=== PATIENT | female | born 1970 | race Caucasian/White ===

== ENCOUNTER 2022-08-17 13:53 | Outpatient (OUT) | payer BC, SELFPAY ==
--- NOTE | 2022-08-17 13:58 | XR_ITS ---
[place] [id number] Patient Name: AUGUSTO ENRIQUEZ MRN: [id number] date: 1970 Sex: F Assigned Patient Location: [facility] Current Patient Location: [facility] Accession/Order Number: [id number] Exam Date: 08/17/2022 14:15 Report Date: 08/17/2022 17:04 At the request of: TY DOOLEY Procedure: XR DEXA axial skeleton EXAMINATION: XR DEXA axial skeleton HISTORY: Screening For Osteoporosis Z13.820 COMPARISON: No relevant comparison available. TECHNIQUE: Dual-energy X-ray absorptiometry (DXA) was performed. FINDINGS: SPINE ANALYSIS: Average bone mineral density is 1.235 g/cm2. T-score (standard deviation relative to young adult mean): 0.5 . HIP ANALYSIS: Lowest bone mineral density is within the right femoral trochanter, 0.812 g/cm2. T-score (standard deviation relative to young adult mean): -0.3 . XR/XR DEXA axial skeleton IMPRESSION: World Alex Organization Classification: Normal - Low Fracture Risk Electronically authenticated by: CONSUELO KRUEGER Date: 08/17/2022 17:04
--- NOTE | 2022-08-17 13:58 | MM_ITS ---
Patient: AUGUSTO ENRIQUEZ Exam Date: 08/17/2022 : 1970 Gender:F Ordering : TY DOOLEY Admission #: [id number] Family : DR KANWAL LONGORIA M.D. Order #: [id number] CLICK HERE TO VIEW EXAM RADIOLOGY REPORT PROCEDURE: MM TOMOSYNTHESIS SCREENING BI COMPARISON: MAMMO EULA SCREEN, 06/18/2014. INDICATIONS: Screening Calculator Name NCI Breast Cancer Risk Assessment Tool 5 Year Breast Cancer Risk 1.20% Lifetime Breast Cancer Risk 9.60% Personal Breast Cancer No Personal Ovarian Cancer No Treatments None Family Cancers Grandmother-maternal with colon cancer at age 73; Grandfather-paternal with throat cancer at age 67. LOCATION: [facility] BREAST COMPOSITION: Almost entirely fatty. FINDINGS: DIAGNOSTIC CATEGORY 1--NEGATIVE. RIGHT BREAST: No significant suspicious finding. No significant change has occurred. LEFT BREAST: No significant suspicious finding. No significant change has occurred. RECOMMENDATIONS: ROUTINE MAMMOGRAM AND CLINICAL EVALUATION IN 12 MONTHS. PLEASE NOTE: A NORMAL MAMMOGRAM DOES NOT EXCLUDE THE POSSIBILITY OF BREAST CANCER. A CLINICALLY SUSPICIOUS PALPABLE LUMP SHOULD BE BIOPSIED. Dictated by: Mk Paez M.D. on 08/19/2022 at 12:55 Approved by: Mk Paez M.D. on 08/19/2022 at 12:56
== END 2022-08-17 13:54 | disposition home or self-care (01) ==
LOC: RAD 13:53
PROVIDERS: PCP Family Medicine; Visit Provider Nurse Practitioner
DX: Z13.820 Encounter for screening for osteoporosis (principal); Z78.0 Asymptomatic menopausal state; Z12.31 Encounter for screening mammogram for malignant neoplasm of breast; Z80.0 Family history of malignant neoplasm of digestive organs; Z80.2 Family history of malignant neoplasm of other respiratory and intrathoracic organs
CPT/HCPCS: 77063; 77067; 77080

== ENCOUNTER 2022-08-27 09:08 | Outpatient (OUT) | payer BC, SELFPAY ==
--- NOTE | 2022-08-27 09:00 | US_ITS ---
The [address] [address] Patient Name: AUGUSTO ENRIQUEZ MRN: [id number] date: 1970 Sex: F Assigned Patient Location: Current Patient Location: Accession/Order Number: [id number] Exam Date: 08/27/2022 09:25 Report Date: 08/29/2022 06:32 At the request of: NON-STAFF PHYSICIAN Procedure: US renal BI EXAMINATION: US renal BI HISTORY: NEPHROLITHIASIS COMPARISON: No relevant comparison available. TECHNIQUE: Ultrasound examination was performed of the kidneys and urinary bladder. FINDINGS: RIGHT KIDNEY: 6 mm nonobstructing stone within the kidney. Dilated renal pelvis versus extrarenal pelvis (developmental variant). Color Doppler demonstrates blood flow within the kidney. Kidney: 11.7 x 4.3 x 4.8 cm LEFT KIDNEY: No evidence of pelvocaliectasis, mass, or calculi. Normal renal cortical parenchymal echogenicity. Color Doppler demonstrates blood flow within the kidney. Kidney: 11.2 x 4.4 x 4.2 cm BLADDER: No visible wall thickening, mass, or calculi. US/US renal BI IMPRESSION: 1. Nonobstructing right nephrolithiasis. 2. Dilated right renal pelvis; this could be normal for a patient or represent distal ureteral obstruction/stone. Electronically authenticated by: CONSUELO KRUEGER Date: 08/29/2022 06:32
== END 2022-08-27 09:09 | disposition home or self-care (01) ==
LOC: US 09:09
PROVIDERS: PCP Family Medicine
DX: N20.0 Calculus of kidney (principal)
CPT/HCPCS: 76775

== ENCOUNTER 2022-11-12 07:52 | Outpatient (OUT) | payer BC, SELFPAY ==
--- NOTE | 2022-11-12 | CT_ITS ---
The [address] [address] Patient Name: AUGUSTO ENRIQUEZ MRN: [id number] date: 1970 Sex: F Assigned Patient Location: CT Current Patient Location: CT Accession/Order Number: [id number] Exam Date: 11/12/2022 08:02 Report Date: 11/13/2022 12:44 At the request of: NON-STAFF PHYSICIAN Procedure: CT abdomen pelvis wo con CLINICAL HISTORY: Kidney Stones N20.0. EXAMINATION: Unenhanced CT scan of the abdomen and pelvis: 11/12/2022. COMPARISON: Renal, bladder ultrasound 08/27/2022. Unenhanced CT scan of the abdomen and pelvis: 02/24/2022. TECHNIQUE: 3 mm axial images from lung bases through ischial tuberosities without intravenous or oral contrast were obtained. Sagittal, coronal reconstructions were performed. FINDINGS: Lung bases demonstrate no focal abnormalities. The heart size seems normal. CT ABDOMEN: The liver, spleen, pancreas, adrenal glands appear normal. The patient status post cholecystectomy. There is no hydronephrosis of the right or the left kidney. There is no perinephric fat stranding. However, there is a faint 2 to 3 mm calculus in the upper pole of the left kidney. This seems nonobstructing. Similarly there is questionable small hypodense nodule in the upper pole of the right kidney posterior laterally, measuring 4 mm in size. There is a nonobstructing calculus measuring 2 to 3 mm in size in the midpole of the right kidney. There is no hydronephrosis. There is no perinephric fat stranding. There is no ureterolithiasis either on the right or the left side. The abdominal aorta has normal caliber. There is no retroperitoneal or mesenteric adenopathy. The bowel loops are of normal caliber with few scattered diverticula in the colon. The appendix seems normal. CT PELVIS: There are beam hardening artifacts from patient's left hip prostheses in place. The bladder seems normal. The uterus, ovaries are not seen. There is no pelvic adenopathy. There are no focal fluid collections. The visualized soft tissues demonstrate degenerative disc disease at L5-S1 with vacuum disc phenomena. CT/CT abdomen pelvis wo con IMPRESSION: 1. There are bilateral nonobstructing renal calculi without obstructive uropathy. 2. Prior cholecystectomy. 3. Normal appendix. 4. Mild diverticulosis without diverticulitis. 5. Previous hysterectomy. Electronically authenticated by: BRITANY MCCORMACK Date: 11/13/2022 12:44
== END 2022-11-12 07:53 | disposition home or self-care (01) ==
LOC: CT 07:53
PROVIDERS: PCP Nurse Practitioner
DX: N20.0 Calculus of kidney (principal); Z90.49 Acquired absence of other specified parts of digestive tract; K57.90 Diverticulosis of intestine, part unspecified, without perforation or abscess without bleeding; Z90.710 Acquired absence of both cervix and uterus
CPT/HCPCS: 74176

== ENCOUNTER 2024-07-19 11:26 | Emergency (ER) | payer OTHER, SELFPAY ==
--- OUTSIDE RECORDS SUMMARY | 2018-05-14 09:15 | XMS_ITS | Continuity of Care Document ---
Author Organization [facility] Address [address] [place] [address] Phone Care Team Providers Care Chief Librarian Circulation Department Name Role Phone Mk Parker Unavailable Unavailable Procedures Procedure Date CHIROPRACTIC MANIPULATION Advance Directives Directive Yes / No Effective Date File Name No Information Encounters Encounter Description Practice Location Reason(s) For Visit Diagnoses Date Provider Providers Copied on Encounter [facility], [address] [place] [address], [id number], tel:[phone] [facility] lumbar spine (chief complaint) lumbar spine (chief complaint) Segmental and somatic dysfunction of lumbar regionLow back painSegmental and somatic dysfunction of cervical region Apr-0 8-201 9 Keith Terrazas. [address] [place] [address], [id number] , [place]. tel: [phone] [facility], [address] [place] [address], [id number], [place] tel:[phone] [facility] lumbar spine (chief complaint) lumbar spine (chief complaint) Segmental and somatic dysfunction of lumbar regionLow back painSegmental and somatic dysfunction of cervical regionCervicalgia Apr-0 5-201 9 Keith Terrazas. [address] [place] [address], [id number] , [place]. tel:[phone] [facility], [address] [place] [address], [id number], [place] tel:[phone] [facility] lumbar spine (chief complaint) lumbar spine (chief complaint) Segmental and somatic dysfunction of lumbar regionLow back painSegmental and somatic dysfunction of cervical regionCervicalgia 9 Keith Terrazas. [address] [place] [address], [place], [place], [id number] , [place]. tel:[phone] Family History Family Member Type Diagnosis Age At Onset No Information Payers Payer name Insurance type Covered constitution party ID Bri montalvo(carrie MOTT [id number] Social History Type Description Quantity Date Captured Comments Sex Female Smoking Status No Information Sexual Orientation Straight or heterosexual Apr Gender Identity Female Chief Complaint And Reason For Visit From encounter dated '05/14/2018 13:15'. lumbar spine (chief complaint) lumbar spine (chief complaint). Description: Pt reports improvement in low back. Now rates pain at a 4. Reason For Referral Reason For Referral No Information History Of Present Illness Encounter Date Complaint History Of Prese nt Illness lumbar spine lumbar spine Pt reports impro vement in low back. Now rates pain at a 4. lumbar spine Pt reports sligh t improvement from last visit. lumbar spine lumbar spine lumbar spine C/O flare up of chronic low back pain with onset 4 weeks ago.Sx are the result of regular ADL'S. Pain is primarily at L3-L5 PVM on the Rt. & Lt. and extends to the SI joint, Rt. & Lt. Pain is local, dull, and without radiation to the lower extremities. No sensory or motor changes noted. Symptoms present with a pain scale of 8 (VAS = 1-10). Pain interferes with regular ADL's. Increase in pain with movement/ROM and ADL'S. Some decrease in symptoms with rest. No change in the pain pattern from the onset of symptoms. Pain pattern is as prior times. Functional Status Date Functional Assessmen t No Information Instructions Date Instruction Additional Infor mation No Information Assessments Type Assessment Date assessment Segmental and somatic dysfunctio n of lumbar region assessment Low back pain assessment Segmental and somatic dysfunctio n of cervical region impression Patient Care Teams Name Effective Dates (start - stop) Status Members No Information
--- OUTSIDE RECORDS SUMMARY | 2024-06-21 05:30 | XMS_ITS ---
Author Organization [facility] vices Address [address] [place] [id number] Care Team Providers Care Chief Lock Tender Operator Name Role Phone Piotrdemetrius Jazmyne Unavailable [phone] REASON FOR VISIT COILED TUBING SUPERVISOR Comp Exam Encounters Encounter Location Date Provider Diagnosis [facility] Main [address] [place] [id number] 06/21/2024 Jazmyne Carrizales Plan Of Treatment Next Appt Details Provider Name:Jazmyne Carrizales , 09/18/2024 03:00:00 PM, [address] [place] [address], [id number], Progress Notes * Elijah ENRIQUEZB:1970 (54 yo F)Acc No.[id number]:06/21/2024 Patient: Jacinda GONZALEZ Provider: Alberto Carrizales DMD :1970 A ge:54 Y S ex:Female Date:06/21/2024 Address:[facility] [facility], [address], [place], [id number] Subjective: * Chief Complaints: * 1 . COILED TUBING SUPERVISOR Comp Exam. * Medical History: Objective: * Vitals: Assessment: Plan: * Treatment: * Billing Information: * Visit Code: * Procedure Codes: * Electronic signature of Eileen Carrizales DMD on 07/19/2024 at 11:41 AM EDT Sign off status: Pending * Provider: Alberto Carrizales DMD Date: 0 06/21/2024 Generated for Suresh hidalgo/Klarissa/eTransmitting on: 0 07/19/2024 11:41 AM EDT
--- OUTSIDE RECORDS SUMMARY | 2024-07-19 11:41 | XMS_ITS | Encounter Summary ---
Author Organization [facility] Address [address] [place] [address] Care Team Providers Care Bed Maker Name Role Phone Sarai Quinn MD Primary Care Provider [phone] Rochelle Maravilla Unavailable [phone] Bela Panda Unavailable Reason for Visit * Reason Onset Date Comments Med Refill 04/08/2024 Encounter Details Date Type Department Care Team (Late st Contact Info) Description 04/08/2024 Refill [facility] [address] [place] [address] Sarai Quinn MD [address] [place] [address] Social History Tobacco Use Types Packs/Day Years Used Date Smoking Tobacco: Never Smokeless Tobacco: Never Alcohol Use Standard Drinks/Week Comments Yes 0 (1 standard drink = 0.6 oz pur e alcohol) caffeine: i can pop a day AUDIT-C Answer Date Recorded Q1: How often do you have a drink containing alc ohol? Monthly or less 11/02/2023 Q2: How many drinks containi ng alcohol do you have on a typical day when you are drinking? 1 or 2 11/02/2023 Q3: How often do you have si x or more drinks on one occasion? Never 11/02/2023 Comments Unknown Sex and Gender Information Value Date Recorded Sex Assigned at Not on file Legal Sex Female 6:52 PM EDT Gender Identity Not on file Sexual Orientation Not on file documented as of this encounter Plan of Treatment Not on file documented as of this encounter Visit Diagnoses Not on filedocumented in this encounter Care Teams Bed Maker Relationship Specialty Start Date End Date Sarai Quinn MD [address] [place] [address] PCP - General Family Medicine 06/14/22 04/08/24 Rochelle Maravilla CRNP [address] [facility] [place] [id number] Referring Physician Nurse Practitioner 05/21/24 Bela Panda PA [address] [place] [address] Physician Sports Marketer Neurology 05/21/24 documented as of this encounter
--- OUTSIDE RECORDS SUMMARY | 2024-07-19 11:41 | XMS_ITS | Referral Summary ---
Author Organization [facility] Address [address] [place] [address] Care Team Providers Care Director Of Student Financial Aid Name Role Phone Capo Blankenship MD Unavailable Rochelle Maravilla MD Primary Care Provider [phone] Allergies Active Allergy Reactions Criticality Noted Date Comments Lisinopril Other High 12/30/2019 Other reaction(s): muscle aches, muscle cramps Medications aspirin 81 mg EC tablet Take 81 mg by mouth in the morning. Active oxybutynin (Ditropan) 5 mg tablet Take 5 mg by mouth in the morning and at bedtime. 3 Active tamsulosin (Flomax) 0.4 mg 24 hr capsule Take 0.4 mg by mouth in the morning. 3 Active tiZANidine (Zanaflex) 4 mg tablet Take 2-4 mg by mouth at bedtime. 3 Active hyoscyamine 0.125 mg SL tablet dissolve 1 tablet under the tongue four times a day if needed for CRAMPS 3 Active fremanezumab (Ajovy Syringe) 225 mg/1.5 mL prefilled syringe inject 1 AND 1/2 milliliters ( 225 milligrams ) subcutaneously Ev... (REFER TO PRESCRIPTION NOTES). 1 Active ergocalciferol (Vitamin D-2) 1.25 MG (32608 Units) capsule Take 50,000 Units by mouth 2 (two) times a week. 0 Active eletriptan (Relpax) 40 mg tablet take 1 tablet by mouth if needed AT ONSET OF HEADACHE may repeat ... (REFER TO PRESCRIPTION NOTES). 0 Active cycloSPORINE (Restasis) 0.05 % ophthalmic emulsion 1 drop twice a day. Active cetirizine (ZyrTEC) 10 mg tablet Take 10 mg by mouth in the morning. Active buPROPion XL (Wellbutrin XL) 300 mg 24 hr tablet Take 300 mg by mouth in the morning. 1 Active OXcarbazepine (Trileptal) 300 mg tablet Take 300 mg by mouth in the morning and at bedtime. Active rosuvastatin (Crestor) 10 mg tablet Take 10 mg by mouth at bedtime. Active hydroCHLOROthi azide (Microzide) 12.5 mg capsuleIndicat ions:Kidney stone Take 1 capsule (12.5 mg) by mouth in the morning. 90 capsule 3 3 Active FLUoxetine (PROzac) 10 mg capsule Take 10 mg by mouth in the morning. 3 Active Active Problems Problem Noted Date Diagnosed Date Kidney stone 03/09/2022 Overview (03/09/2022): Added automatically from request for surgery [id number] Factor V Leiden mutation Social History Tobacco Use Types Packs/Day Years Used Date Smoking Tobacco: Never Smokeless Tobacco: Never Tobacco Cessation:Counseling Given: Not Answered Alcohol Use Standard Drinks/Week Comments Not Currently 0 (1 standard drink = 0.6 oz pur e alcohol) PHQ-2 Answer Date Recorded Patient Health Questionnaire-2 Score 0 11/30/2022 [place] Safety & Environment Answer Date Rec orded Fear of Current or Ex-Partner Not on file Emotionally Abused Not on file 03/30/2023 Physically Abused Not on file 03/30/2023 Sexually Abused Not on file 03/30/2023 Physically or Sexually Abused Not on file Comments Unknown Sex and Gender Information Value Date Recorded Sex Assigned at Female 04/15/2022 9:45 AM EST Legal Sex Female 8:58 AM EST Gender Identity Female 04/15/2022 9:45 AM EST Sexual Orientation Not on file Last Filed Vital Signs Vital Sign Reading Time Taken Comments Blood Pressure 115/66 11/30/2022 2:26 PM EDT Pulse 83 11/30/2022 2:26 PM EDT Temperature 36.3 C (97.3 F) 03/17/2022 3:15 PM EST Respiratory Rate 18 03/17/2022 3:15 PM EST Oxygen Saturation 100% 03/17/2022 3:15 PM EST Inhaled Oxygen Concentration - - Weight 94.3 kg (208 lb) 09/21/2022 2:32 PM EDT Height 152.4 cm (5') 09/21/2022 2:32 PM EDT Body Mass Index 40.62 09/21/2022 2:32 PM EDT Plan of Treatment Not on file Medical Devices Implanted Type Area Cost And Sales Record Supervisor Device Identifier Shelf Expiration Date Model / Serial / Lot Stent,Ureteral ,Soft,Tria,6x2 6 - [id number] Implanted:Qty: 1 on 03/17/2022 by Capo Blankenship MD at [facility] Stent Right: Ureter [facility] [id number] 12/14/2024 [id number] Insurance [facility] Care Teams Director Of Student Financial Aid Relationship Specialty Start Date End Date Rochelle Maravilla MD [address] [place] [phone] PCP - General 09/14/22 Capo Blankenship MD [address] [facility] [place] [address] Consulting Physician Urology 03/07/22
--- OUTSIDE RECORDS SUMMARY | 2024-07-19 11:41 | XMS_ITS | Encounter Summary ---
Author Organization [facility] Address [address] [place] [address] Care Team Providers Care Monogram Operator Name Role Phone Viktoriya Mendoza NP Unavailable [phone] Sarai Quinn MD Primary Care Provider Rochelle Maravilla Unavailable [phone] Bela Panda Unavailable Encounter Details Date Type Department Care Team (Late st Contact Info) Description 08/19/2022 Abstract [facility] [address] [place] [phone] Sarai Quinn MD [address] [place], [place] [id number] Social History Tobacco Use Types Packs/Day Years Used Date Smoking Tobacco: Never Assessed Comments Unknown Sex and Gender Information Value Date Recorded Sex Assigned at Not on file Legal Sex Female 6:52 PM EDT Gender Identity Not on file Sexual Orientation Not on file documented as of this encounter Plan of Treatment Not on file documented as of this encounter Visit Diagnoses Not on filedocumented in this encounter Care Teams Monogram Operator Relationship Specialty Start Date End Date Viktoriya Mendoza NP [address] [facility] [place], [place] [id number] PCP - [place] [employer] 05/07/20 Sarai Quinn MD [address] [place] [address] PCP - General Family Medicine 06/14/22 04/08/24 Rochelle Maravilla CRNP [address] [facility] [place] [address] Referring Physician Nurse Practitioner 05/21/24 Bela Panda PA [address] [place] [address] Physician Real Estate Legal Assistant Neurology 05/21/24 documented as of this encounter
--- OUTSIDE RECORDS SUMMARY | 2024-07-19 11:41 | XMS_ITS | Encounter Summary ---
Author Organization [facility] Address [address] [place] [address] Care Team Providers Care Acetylene Torch Burner Name Role Phone Sarai Quinn MD Primary Care Provider [phone] Rochelle Maravilla Unavailable [phone] Bela Panda Unavailable Reason for Visit * Reason Onset Date Comments Med Refill 03/19/2024 Encounter Details Date Type Department Care Team (Late st Contact Info) Description 03/19/2024 Refill [facility] [address] [place] [address] Sarai Quinn MD [address] [place] [address] Social History Tobacco Use Types [...] on filedocumented in this encounter Care Teams Acetylene Torch Burner Relationship Specialty Start Date End Date Sarai Quinn MD [address] [place] [address] PCP - General Family Medicine 06/14/22 04/08/24 Rochelle Maravilla CRNP [address] [facility] [place] [address] Referring Physician Nurse Practitioner 05/21/24 Bela Panda PA [address] [place] [address] Physician Oil Exploration Engineer Neurology 05/21/24 documented as of this encounter
--- OUTSIDE RECORDS SUMMARY | 2024-07-19 11:41 | XMS_ITS | Patient Health Record ---
Author Organization [facility] vices Address [address] [place], [place] [id number] Care Team Providers Care Med Care Manager Name Role Phone Jazmyne Carrizales Unavailable [phone] Allergies Allergen (clinical drug ingredient) Drug/Non Drug Allergy documented on EMR Reaction Allergy Type Onset Date Status phenazopyridine Pyridium Unknown Drug Allergy A ctive Reason For Referral No Information Medications Medication SIG (Take, Route, Frequency, Duration) Notes Start Date End Date Status Ozempic 0.5 mg Active PROzac 20 MG 1 capsule Orally Onc e a day Active Wellbutrin 300 mg Active tiZANidine HCl 4 MG 1 tablet at bedtime as needed Orally Once a day Active ZyrTEC 10 MG 1 tablet Orally Once a day Active hydroCHLOROthiazide 12.5 MG 1 capsule in the morning Orally Once a day Active Ajovy 225 MG/1.5ML 1.5 mL Subcutaneous Active Relpax 40 MG 1 tablet Orally Once a day Active Denta 5000 Plus 1.1 % Brashear with toothpa macarena morning and night. Do not rinse after use. Dental Two times a day for 30 days 03/14/2024 Active Baby Aspirin Active Problems Problem Type SNOMED Code ICD Code Onset Dates Problem Status W/U Status Risk Notes Problem Obese class II (314761904643 105) BMI 39.0-39.9,a dult (Z68.39) Active confirmed Vital Signs Heart Rate 80 /min 03/14/2024 Blood pressure diastolic 83 mm Hg 03/14/2024 Height-cm 152.4 cm 03/14/2024 Weight-kg 90.72 kg 03/14/2024 Height 5'0 in 03/14/2024 Blood pressure systolic 137 mm Hg 03/14/2024 Weight 200 lbs 03/14/2024 BMI 39.06 kg/m2 03/14/2024 Encounters Encounter Location Date Provider Diagnosis Dental Main [address] [place], [place] [id number] 03/14/2024 Jazmyne Carrizales BMI 39.0-39.9,adul t Z68.39 ; Dietary counseling Z71.3 ; Exercise counseling Z71.82 ; Encounter for screening for dental disorders Z13.84 ; Dental caries into dentine K02.62 ; Dental confucianism status Z98.811 and Encounter for dental examination and cleaning without abnormal findings Z01.20 Assessments Encounter Date Diagnosis (ICD Code) Assessment Notes Treatment Notes Treatment Clinical Notes Section Notes 03/14/2024 BMI 39.0-39.9,adult (ICD-10 - Z68.39) 03/14/2024 Dietary counseling (ICD-10 - Z71.3) 03/14/2024 Exercise counseling (ICD-10 - Z71.82) 03/14/2024 Encounter for screening for dental disorders (ICD-10 - Z13.84) 03/14/2024 Dental caries into dentine (ICD-10 - K02.62) 03/14/2024 Dental confucianism status (ICD-10 - Z98.811) 03/14/2024 Encounter for dental examination and cleaning without abnormal findings (ICD-10 - Z01.20) Plan Of Treatment Next Appt Details Provider Name:Jazmyne Carrizales , 09/18/2024 03:00:00 PM, [address] [place], [place], [id number], Insurance Providers Payer Name Payer Address Payer Phone Subscriber Number Group Number Insured Name Patient Relationship to Insured Coverage Start Date Coverage End Date [facility] [address] [place] [address] [id number] Spouse - patient is the spouse of the insured 9
--- OUTSIDE RECORDS SUMMARY | 2024-07-19 11:41 | XMS_ITS | Encounter Summary ---
Author Organization [facility] Address [address] [place] [address] Care Team Providers Care Automatic Profile Shaper Operator Name Role Phone Viktoriya Mendoza NP Unavailable [phone] Sarai Quinn MD Primary Care Provider Rochelle Maravilla Unavailable Bela Panda Unavailable Encounter Details Date Type Department Care Team (Late st Contact Info) Description 08/29/2022 Abstract [facility] [address] [place] [id number] Sarai Quinn MD [address] [place], [place] [id number] Social History Tobacco Use Types Packs/Day Years [...] on filedocumented in this encounter Care Teams Automatic Profile Shaper Operator Relationship Specialty Start Date End Date Viktoriya Mendoza NP [address] [facility] [address] [place], [place] [id number] PCP - [place] Commercial 05/07/20 Sarai Quinn MD [address] [place] [address] PCP - General Family Medicine 06/14/22 04/08/24 Rochelle Maravilla CRNP [address] [facility] [place] [address] Referring Physician Nurse Practitioner 05/21/24 Bela Panda PA [address] [place] [address] Physician Marine Propulsion Technician Neurology 05/21/24 documented as of this encounter
--- OUTSIDE RECORDS SUMMARY | 2024-07-19 11:41 | XMS_ITS | Encounter Summary ---
Author Organization [facility] Address [address] [place] [address] Care Team Providers Care Foam Rubber Curer Name Role Phone Sarai Quinn Primary Care Provider [phone] Source Comments In the event this information is protected by the Federal Confidentiality of Alcohol and Drug AbusePatient Records regulations: The Federal rules restrict any use of the information to criminally investigate or prosecute any alcohol or drug abuse patient.[facility] Encounter Details Date Type Department Care Team (Late st Contact Info) Description 01/16/2020 Patient [facility] [address] [place] [address] Massimo Calvin RPh RE: COPD: Alpha-1 Antitrypsin Deficiency Testing Social History Tobacco Use Types Packs/Day Years Used Date Smoking Tobacco: Never Assessed Area Deprivation Index Answer Date Zenon rded National Score (1-100), lower number is lower ri sk Not on file 01/11/2020 State Score (1-10), lower number is lower risk N ot on file 01/11/2020 Data from: https://www.neighborhoodatlas.medicine.[facility].edu/. Last address used for calculation Not on file 01/11/2020 Comments Unknown Sex and Gender Information Value Date Recorded Sex Assigned at Female 12/28/2019 6:51 PM EST Legal Sex Female 1:02 PM EST Gender Identity Female 12/28/2019 6:51 PM EST Sexual Orientation Straight 12/28/2019 6: 51 PM EST COVID-19 Exposure Response Date Recorded In the last month, have you been in contact with someone who was confirmed or suspected to have Coronavirus / COVID-19? No / Unsure 01/11/2020 9:56 AM EST documented as of this encounter Plan of Treatment Not on file documented as of this encounter Visit Diagnoses Not on filedocumented in this encounter Care Teams Foam Rubber Curer Relationship Specialty Start Date End Date Sarai Quinn [address] [place] [address] PCP - General Family Medicine 12/30/19 documented as of this encounter
--- OUTSIDE RECORDS SUMMARY | 2024-07-19 11:41 | XMS_ITS | Clinical Summary ---
Author Organization [facility] Address [address] [place] [address] Phone Care Team Providers Care Modeling Teacher Name Role Phone Rochelle Maravilla APRN-SECURITIES COMPLIANCE EXAMINER Primary Care Provid er Allergies Active Allergy Reactions Criticality Noted Date Comments Amino Acids Other 10/21/2019 Codeine Nausea Only,Nausea/vomiting 08/08/2019 Lisinopril Myalgia,Other High 12/30/2019 Other reaction(s): muscle aches, muscle cramps Oxycodone-Acetaminophen Other 08/08/2019 Phenazopyridine Hives,Itching,Nausea /vomiting 04/27/1989 Pseudoephedrine Other,Palpitations Low 12/30/2019 palpitations, patient reported Medications albuterol 90 mcg/actuation inhaler Inhale 2 puffs every 4 hours if needed for shortness of breath. Active buPROPion XL (Wellbutrin XL) 300 mg 24 hr tablet Take 1 tablet (300 mg) by mouth once daily in the morning. Take before meals. 4 Active eletriptan (Relpax) 40 mg tablet Take 1 tablet (40 mg) by mouth 1 time if needed. Active FLUoxetine (PROzac) 10 mg capsule Take 1 capsule (10 mg) by mouth once daily in the morning. Take before meals. 4 Active hydroCHLOROthia zide (Microzide) 12.5 mg capsule Take 1 capsule (12.5 mg) by mouth once daily. 3 Active OXcarbazepine (Trileptal) 300 mg tablet Take 1 tablet (300 mg) by mouth 2 times a day. Active rosuvastatin (Crestor) 10 mg tablet Take 1 tablet (10 mg) by mouth once daily in the morning. Take before meals. Active aspirin 81 mg EC tablet Take 1 tablet (81 mg) by mouth once daily. Active cetirizine (ZyrTEC) 10 mg tablet Take 1 tablet (10 mg) by mouth once daily. Active cycloSPORINE (Restasis) 0.05 % ophthalmic emulsion 1 drop twice a day. Active Ajovy Syringe 225 mg/1.5 mL prefilled syringe Inject under the skin every 30 (thirty) days. Active tiZANidine (Zanaflex) 4 mg tablet take 1/2 to 1 tablet by mouth at bedtime Active multivitamin tablet Take 1 tablet by mouth once daily. Active gabapentin (Neurontin) 300 mg capsule Take 1 capsule (300 mg) by mouth 2 times a day. 2 Active Active Problems Problem Noted Date Diagnosed Date Carpal tunnel syndrome, left upper limb 05/03/19 24 Family History Medical History Relation Name Comments Diabetes Maternal Grandmother Laurence Cruz Clotting disorder Mother Carmen Bianchi Diabetes Mother Carmen Bianchi Clotting disorder Sister Rhonda Bianchi Relation Name Status Comments Maternal Grandmother Laurence Cruz Mother Carmen Bianchi Sister Rhonda Bianchi Social History Tobacco Use Types Packs/Day Years Used Date Smoking Tobacco: Never Smokeless Tobacco: Never Tobacco Cessation:Counseling Given: Not Answered Alcohol Use Standard Drinks/Week Comments Yes 1 (1 standard drink = 0.6 oz pur e alcohol) Social drinker Comments No Sex and Gender Information Value Date Recorded Sex Assigned at Female 04/27/2023 4:07 PM EDT Legal Sex Female 1:55 AM EST Gender Identity Female 04/27/2023 4:07 PM EDT Sexual Orientation Not on file Last Filed Vital Signs Vital Sign Reading Time Taken Comments Blood Pressure 176/87 06/02/2023 8:08 AM EDT Pulse 97 06/02/2023 8:08 AM EDT Temperature 36.8 C (98.2 F) 06/02/2023 8:08 AM EDT Respiratory Rate 16 06/02/2023 8:08 AM EDT Oxygen Saturation 98% 06/02/2023 8:08 AM EDT Inhaled Oxygen Concentration - - Weight 106 kg (232 lb 12.9 oz) 06/02/2023 6:14 A M EDT Height 152.4 cm (5') 06/02/2023 6:14 AM EDT Body Mass Index 45.47 06/02/2023 6:14 AM EDT Plan of Treatment Health Maintenance Due Date Last Done Comments CT Colonography 1970 Colonoscopy 1970 FIT-DNA (Cologuard) 1970 HIV Screening 1970 Lipid Panel 1970 Sigmoidoscopy 1970 Yearly Adult Physical 1970 MMR Vaccines (1 of 1 - Standard series) 1971 Diabetes Screening 01/25/1988 Hepatitis C Screening 01/25/1988 Hepatitis B Vaccines (1 of 3 - 19+ 3-dose series) 1989 DTaP/Tdap/Td Vaccines (1 - Tdap) 01/25/1992 Colorectal Cancer Screening 01/26/2019 FIT 01/26/2019 01/26/2018 Pneumococcal Vaccine (2 of 2 - PCV) 02/02/2021 02/03/2020, 01/07/2020 Mammogram 08/23/2023 08/22/2022, 08/06, 08/06/2019 COVID-19 Vaccine ( - season) 2023 02/24/2022, 01/16/2022, 12/16/2020, Additional history exists Influenza Vaccine (Season Ended) 2024 12/27/2022, 01/16/2022, 02/15/2021, Additional history exists Zoster Vaccines Completed 05/01/2021, 02/15/2021 HIB Vaccines Aged Out No longer eligi ble based on patient's age to complete this topic HPV Vaccines Aged Out No longer eligi ble based on patient's age to complete this topic Hepatitis A Vaccines Aged Out No long er eligible based on patient's age to complete this topic IPV Vaccines Aged Out No longer eligi ble based on patient's age to complete this topic Meningococcal Vaccine Aged Out No beatriz yolanda eligible based on patient's age to complete this topic Rotavirus Vaccines Aged Out No longer eligible based on patient's age to complete this topic Medical Devices Implanted Type Area Milling Machinist Device Identifier Shelf Expiration Date Model / Serial / Lot Joint Hip Joint Hip Left: Hip Insurance [facility] Advance Directives For more information, please contact: [phone] (Available ) * Full Code (Latest Code Status on File) Date Activated Date Inactivated Comments 06/02/2023 5:47 AM Question Answer Comments Plan of Care: Code Status Discussion Not Compl eted Decision Maker: Provider Rationale: Patient condition does not warra nt discussion Care Teams Modeling Teacher Relationship Specialty Start Date End Date Rochelle Maravilla, STOCK HOLDER-SECURITIES COMPLIANCE EXAMINER PCP - General Family Medicine 06/02/23
--- OUTSIDE RECORDS SUMMARY | 2024-07-19 11:41 | XMS_ITS | Encounter Summary ---
Author Organization [facility] Address [address] [place] [address] Phone Care Team Providers Care Emergency Room Rn Name Role Phone Rochelle Maravilla CONSTRUCTION SALES REPRESENTATIVE-PROFESSOR CRIMINAL JUSTICE Primary Care Provid er Encounter Details Date Type Department Care Team (Late st Contact Info) Description 06/21/2023 Scanned Document [facility] [address] [address] Galindo Frausto, DO [address] [facility], [address] [place] [address] Social History Tobacco Use Types Packs/Day Years Used Date Smoking Tobacco: Never Smokeless Tobacco: Never Alcohol Use Standard Drinks/Week Comments Yes 1 (1 standard drink = 0.6 oz pur e alcohol) Social drinker Comments No Sex and Gender Information Value Date Recorded Sex Assigned at Female 04/27/2023 4:07 PM EDT Legal Sex Female 1:55 AM EST Gender Identity Female 04/27/2023 4:07 PM EDT Sexual Orientation Not on file COVID-19 Exposure Response Date Recorded In the last 10 days, have yo u been in contact with someone who was confirmed or suspected to have Coronavirus/COVID-19? No / Unsure 06/13/2023 8:31 AM EDT documented as of this encounter Plan of Treatment Not on file documented as of this encounter Visit Diagnoses Not on filedocumented in this encounter Care Teams Emergency Room Rn Relationship Specialty Start Date End Date Rochelle Maravilla APRN-ARELIS PCP - General Family Medicine 06/02/23 documented as of this encounter
--- OUTSIDE RECORDS SUMMARY | 2024-07-19 11:41 | XMS_ITS | Encounter Summary ---
Author Organization [facility] Address [address] [place] [address] Care Team Providers Care Natural Resources Extension Educator Name Role Phone Sarai Quinn Primary Care Provider [phone] Source Comments In the event this information is protected by the Federal Confidentiality of Alcohol and Drug AbusePatient Records regulations: The Federal rules restrict any use of the information to criminally investigate or prosecute any alcohol or drug abuse patient.[facility] Encounter Details Date Type Department Care Team (Late st Contact Info) Description 01/03/2020 Patient Msg Rheumatology [address] [place] [address] Provider, [facility] appointments Social History Tobacco Use Types Packs/Day Years Used Date Smoking Tobacco: Never Assessed Comments Unknown Sex and Gender Information Value Date Recorded Sex Assigned at Female 12/28/2019 6:51 PM EST Legal Sex Female 1:02 PM EST Gender Identity Female 12/28/2019 6:51 PM EST Sexual Orientation Straight 12/28/2019 6: 51 PM EST documented as of this encounter Plan of Treatment Not on file documented as of this encounter Visit Diagnoses Not on filedocumented in this encounter Care Teams Natural Resources Extension Educator Relationship Specialty Start Date End Date Sarai Quinn [address] [place] [address] PCP - General Family Medicine 12/30/19 documented as of this encounter
--- OUTSIDE RECORDS SUMMARY | 2024-07-19 11:41 | XMS_ITS | Clinical Summary ---
Author Organization [facility] Address [address] [place] [address] Care Team Providers Care Waterproof Coating Machine Tender Name Role Phone Rochelle Maravilla Unavailable [phone] Bela Panda Unavailable Allergies Active Allergy Reactions Criticality Noted Date Comments Phenazopyridine 11/02/2023 Medications Wellbutrin XL 300 MG 24 hr tablet Take 300 mg by mouth in the morning. Active PROzac 20 MG capsule Take 20 mg by mouth Daily Active hydroCHLOROthia zide (Microzide) 12.5 MG capsule Take 12.5 mg by mouth Daily 09/27/19 24 Active Crestor 10 MG tablet Take 10 mg by mouth Daily Active semaglutide (Ozempic, 0.25 or 0.5 MG/DOSE,) 2 MG/1.5ML solution pen-injector Inject 0.25 mg under the skin 1 (one) time per week 10/02/19 24 Active tiZANidine (Zanaflex) 4 MG tabletIndicatio ns:Migraine with aura and without status migrainosus, not intractable Take 1 tablet (4 mg) by mouth every 8 (eight) hours if needed for muscle spasms 30 tablet 2 03/12/19 25 Active OXcarbazepine (Trileptal) 300 MG tabletIndicatio ns:Migraine with aura and without status migrainosus, not intractable TAKE 1 TABLET BY MOUTH IN THE MORNING and TAKE 1 & 1/2 (ONE AND ONE-HALF) TABLETS BY MOUTH AT BEDTIME 75 tablet 2 04/09/19 25 Active eletriptan (Relpax) 40 MG tabletIndicatio ns:Other migraine without status migrainosus, not intractable Take 1 tablet (40 mg) by mouth 1 (one) time if needed for migraine May repeat in 2 hours if unresolved. Do not exceed 80 mg in 24 hours. 9 tablet 5 05/22/19 25 Active Ajovy 225 MG/1.5ML prefilled syringeIndicati ons:Other migraine without status migrainosus, not intractable INJECT 1.5 mL SUBCUTANEOUSLY (UNDER THE SKIN) EVERY 30 days 1.5 mL 3 06/18/19 25 Active Active Problems Problem Noted Date Diagnosed Date Migraine 11/02/2023 Overview (11/02/2023): She has taken Imitrex in the past for abortive therapy with little benefit. She has failed Maxalt. Relpax has been effective for abortive treatment. TIA (transient ischemic attack) 11/02/2023 Overview (11/02/2023): Continues with daily aspirin and Crestor. She denies new signs or symptoms of stroke. NATANAEL (obstructive sleep apnea) 11/02/2023 Overview (11/02/2023): PSG revealed moderate NATANAEL and she is now following with a sleep specialist and is on a CPAP. She increased her melatonin and responded well to that. Paresthesias 11/02/2023 Carpal tunnel syndrome, bilateral upper limbs Median neuropathy 11/02/2023 Overview (11/02/2023): Patient was experiencing paresthesias to her bilateral upper extremities occurring at night while sleeping on her side, manifested as burning in nature that will wake her from sleep. She is now noting focal numbness to her right 1st, 2nd, and 3rd digit from the DIP distally. EMG of the bilateral upper extremities 03/28/23 revealed bilateral median neuropathies that were severe in degree electrically. There were bilateral C5 motor radiculopathies that were mild in degree electrically. Factor 5 Leiden mutation, heterozygous ([facility]) Encounters Date Type Department Care Team Description 06/17/2024 Refill [facility] [address] [place] [address] Bela Panda PA Other migraine without status migrainosus, not intractable 05/21/2024 9:20 AM EDT Office Visit [facility] [address] [place] [address] Bela Panda PA NATANAEL (obstructive sleep apnea) (Primary Dx); Other migraine without status migrainosus, not intractable ; Radiculopathy of cervical region 05/21/2024 Bamboo flowsheet [facility] [address] [place] [address] Bela Panda PA from Last 3 Months Immunizations Immunization Administration Dates Next Due Influenza, High Dose Seasonal, Preservative Free 10/31/2019,10/08/2019 Influenza, injectable, MDCK, preservative free, quadrivalent 12/27/2022,02/15/2021 Influenza, injectable, quadrivalent, preservativ e free 11/28/2018,11/11/2017 Influenza, seasonal, intradermal, preservative f ree 12/06/2014 Pneumococcal Polysaccharide PPSV23 01/07/2020 Zoster, Recombinant 05/01/2021,02/15/2021 Family History Medical History Relation Name Comments Diabetes Other Mental illness Other Relation Name Status Comments Other Social History Tobacco Use Types Packs/Day Years Used Date Smoking Tobacco: Never Smokeless Tobacco: Never Tobacco Cessation:Counseling Given: Not Answered Alcohol Use Standard Drinks/Week Comments Yes 0 [...] on file Sexual Orientation Not on file Last Filed Vital Signs Vital Sign Reading Time Taken Comments Blood Pressure 132/78 05/21/2024 9:21 AM EDT Pulse - - Temperature - - Respiratory Rate - - Oxygen Saturation - - Inhaled Oxygen Concentration - - Weight 93 kg (205 lb) 05/21/2024 9:21 AM EDT Height 152.4 cm (5') 05/21/2024 9:21 AM EDT Body Mass Index 40.04 05/21/2024 9:21 AM EDT Plan of Treatment Health Maintenance Due Date Last Done Comments CT Colonography 1970 Colonoscopy 1970 FIT-DNA 1970 FIT 1970 Sigmoidoscopy 1970 Pap Smear 1991 Cervical Cancer Screening 01/25/2000 HPV/Cotest 01/25/2000 Colorectal Cancer Screening 01/26/2019 FOBT 01/26/2019 01/26/2018 Mammogram 08/23/2023 08/22/2022, 08/22/2022, 07/09 Influenza Vaccine Completed 10/31/2023, , 01/16/2022, Additional history exists Procedures Procedure Name Priority Date/Time Associated Diagnosis Comments BI MAMMOGRAM SCREENING TOMOSYNTHESIS BILATERAL Routine 08/06/2019 Obesity, unspecified Major depressive disorder, single episode, unspecified Allergic rhinitis, unspecified Vitamin D deficiency, unspecified Encounter for screening for malignant neoplasm of cervix Obstructive sleep apnea (adult) (pediatric) Metabolic syndrome Body mass index (BMI) 40.0-44.9, adult ([facility]) Migraine without aura, not intractable, without status migrainosus Other hypoglycemia Encounter for general adult medical examination without abnormal findings Other specified disorders of bladder Binge eating disorder Elevated blood-pressure reading, without diagnosis of hypertension Encounter for screening mammogram for malignant neoplasm of breast Personal history of other endocrine, nutritional and metabolic disease Other specified abnormal findings of blood chemistry STOOL OCCULT BL. SCR. (GUAIAC) Routine 01/26/2018 from Last 3 Months or Most Recently Relevant to Health Maintenance Results * Bilateral screening mammogram with tomosynthesis (08/06/2019) Anatomical Region Laterality Modality Breast Bilateral Mammography Impressions 08/06/2019 12:00 AM EDT CATEGORY 1 : Negative Board Certified Radiologist. Accredited by the ACR and FDA. MAMMOGRAPHY IS VERY IMPORTANT TO YOUR HEALTH. THE CURRENT [employer] AND [employer] COMPREHENSIVE CANC[employer]WORK GUIDELINES RECOMMENDS ANNUAL MAMMOGRAPHY BEGINNING AT AGE 40. THIS FACILITY USES A REMINDER SYSTEM TO ENSURE ALL PATIENTS RECEIVE REMINDER NOTIFICATIONS AT THE APPROPRIATE TIME BASED ON THE RECOMMENDATIONS OF THIS EXAM. Report reported and signed by Edmond Lloyd on 08/07/2019 1106 Narrative 08/06/2019 12:00 AM EDT PERFORMED AT [facility] LOCATION:[place] [address] COMPARISON: Dating back to June 18, 2014 and November 15, 2010 TECHNIQUE: 2D and 3D Tomosynthesis of the right and left breasts was performed. FINDINGS: Breast composition demonstrates almost entirely fat. No suspicious microcalcifications, asymmetry, architectural distortion or associated features are present. Procedure Note CONVERSION, GENERIC - 08/12/2022 PERFORMED AT [facility] LOCATION:[place] [address] COMPARISON: Dating back to June 18, 2014 and November 15, 2010 TECHNIQUE: 2D and 3D Tomosynthesis of the right and left breasts wasperformed. FINDINGS: Breast composition demonstrates almost entirely fat. No suspiciousmicrocalcifications, asymmetry, architectural distortion or associated features are present. IMPRESSION: CATEGORY 1 : Negative Board Certified Radiologist. Accredited by the ACR and FDA. MAMMOGRAPHY IS VERY IMPORTANT TO YOUR HEALTH. THE CURRENT [employer] AND NATIONAL COMPREHENSIVE CANCER NETWORK GUIDELINES RECOMMENDS ANNUALMAMMOGRAPHY BEGINNING AT AGE 40. THIS FACILITY USES A REMINDER SYSTEM TO ENSURE ALLPATIENTS RECEIVE REMINDER NOTIFICATIONS AT THE APPROPRIATE TIME BASED ON THERECOMMENDATIONS OF THIS EXAM. Report reported and signed by Edmond Lloyd on 08/07/2019 1106 us Maren Krmarium IM BI PROCEDURES Final Result * STOOL OCCULT BL. SCR. (GUAIAC) (01/26/2018) FECAL OCCULT BLOOD Negative for Occult Blood by Guaiac Methodology [facility] REFERENCE NOTE 1 -------- [facility] REFERENCE NOTE 2 Reference range = Negative [facility] C. DIFFICILE DNA AMPLIFICATION [facility] Comment: Reason for Exam Diarrhea, unspecified type Stool CDT DNA RESULTS Negative for Toxigenic C. Difficile by DNA Amplification [facility] REFERENCE NOTE 1 -------- [facility] REFERENCE NOTE 2 Reference range = Negative [facility] 01/26/2018 Jennifer Galeano MINER ASSISTANT [facility] Final Result [facility] from Last 3 Months or Most Recently Relevant to Health Maintenance Insurance [facility] [employer] Care Teams Waterproof Coating Machine Tender Relationship Specialty Start Date End Date Rochelle Maravilla CRNP [address] [place] [address] Referring Physician Nurse Practitioner 05/21/24 Bela Panda PA [address] [place] [address] Physician Despatching And Receiving Clerk Neurology 05/21/24
--- OUTSIDE RECORDS SUMMARY | 2024-07-19 11:41 | XMS_ITS | Encounter Summary ---
Author Organization [facility] Address [address] [place] [address] Care Team Providers Care Fountain Dispenser Name Role Phone Viktoriya Mendoza NP Unavailable Sarai Quinn MD Primary Care Provider Rochelle Maravilla Unavailable Bela Panda Unavailable Encounter Details Date Type Department Care Team (Late st Contact Info) Description 08/20/2022 Abstract [facility] [address] [place] [id number] Sarai Quinn MD [address] [place], [place] [address] Social History Tobacco Use Types Packs/Day Years [...] on filedocumented in this encounter Care Teams Fountain Dispenser Relationship Specialty Start Date End Date Viktoriya Mendoza NP [address] [facility] [place], [place] [id number] PCP - [place] Commercial 05/07/20 Sarai Quinn MD [address] [place] [address] PCP - General Family Medicine 06/14/22 04/08/24 Rochelle Maravilla CRNP [address] [facility] [place] [address] Referring Physician Nurse Practitioner 05/21/24 Bela Panda PA [address] [place] [address] Physician Job Honer Neurology 05/21/24 documented as of this encounter
--- OUTSIDE RECORDS SUMMARY | 2024-07-19 11:41 | XMS_ITS | Encounter Summary ---
Author Organization [facility] Address [address] [place] [address] Phone Care Team Providers Care Scada Operator Name Role Phone Rochelle Maravilla FURNACE ERECTOR-INSTANT POWDER SUPERVISOR Primary Care Provid er Encounter Details Date Type Department Care Team (Late st Contact Info) Description 07/11/2023 Scanned Document [facility] [address] [place] [address] Galindo Frausto, DO [address] [facility], [address] [place] [address] Social History Tobacco Use Types Packs/Day [...] on filedocumented in this encounter Care Teams Scada Operator Relationship Specialty Start Date End Date Rochelle Maravilla APRN-ARELIS PCP - General Family Medicine 06/02/23 documented as of this encounter
--- OUTSIDE RECORDS SUMMARY | 2024-07-19 11:41 | XMS_ITS | Clinical Summary ---
Author Organization [facility] Address [address] [place] [address] Care Team Providers Care Law Enforcement Director Name Role Phone Capo Blankenship MD Unavailable Rochelle Maravilla MD Primary Care Provider [phone] Allergies Active Allergy Reactions Criticality Noted Date [...] 1 Active ergocalciferol (Vitamin D-2) 1.25 MG (77821 Units) capsule Take 50,000 Units by mouth [...] (03/09/2022): Added automatically from request for surgery [id number] Factor V Leiden mutation Social History Tobacco [...] 09/21/2022 2:32 PM EDT Plan of Treatment Health Maintenance Due Date Last Done Comments CT Colonography 1970 Colonoscopy 1970 Colorectal Cancer Screening 1970 FIT-DNA 1970 FIT 1970 FOBT 1970 Sigmoidoscopy 1970 Depression Screening 1982 Hepatitis B Vaccines (1 of 3 - 19+ 3-dose series) 1989 Pap Smear 1991 Adult Tetanus 01/25/1992 Cervical Cancer Screening 01/25/2000 HPV/Cotest 01/25/2000 COVID-19 Vaccine ( season) 2023 01/16/2022, 12/16/2020, 05/08/2020, Additional history exists Mammogram 08/22/2024 08/22/2022, 07/09, 08/06/2019 Influenza Vaccine (Season Ended) 2024 12/27/2022, 01/16/2022, 02/15/2021, Additional history exists Pneumococcal Vaccine: Pediatrics (0 to 5 Years) and At-Risk Patients (6 to 64 Years) Aged Out 02/03/2020, 01/07/2020 No longer eligibl e based on patient's age to complete this topic Zoster Vaccines Completed 05/01/2021, 02/06, 02/14/2021 HIB Vaccines Aged Out No longer eligi ble based on patient's age to complete this topic HPV Vaccines Aged Out No longer eligi ble based on patient's age to complete this topic IPV Vaccines Aged Out No longer eligi ble based on patient's age to complete this topic Meningococcal B Vaccine Aged Out No l onger eligible based on patient's age to complete this topic Meningococcal Vaccine Aged Out No beatriz yolanda eligible based on patient's age to complete this topic Rotavirus Vaccines Aged Out No longer eligible based on patient's age to complete this topic Medical Devices Implanted Type Area Tool Repair Technician Device Identifier Shelf Expiration Date Model / Serial / Lot Stent,Ureteral ,Soft,Tria,6x2 6 - [id number] Implanted:Qty: 1 on 03/17/2022 by Capo Blankenship MD at [facility] Stent Right: Ureter [employer] [id number] 12/14/2024 [id number] / [id number] Insurance [facility] Care Teams Law Enforcement Director Relationship Specialty Start Date End Date Rochelle Maravilla MD [address] [place] [address] PCP - General 09/14/22 Capo Blankenship MD [address] [place] [address] Consulting Physician Urology 03/07/22
--- OUTSIDE RECORDS SUMMARY | 2024-07-19 11:41 | XMS_ITS | Encounter Summary ---
Author Organization [facility] Address [address] [place] [address] Care Team Providers Care Motorcycle Sales Associate Name Role Phone Sarai Quinn MD Primary Care Provider [phone] Rochelle Maravilla Unavailable Bela Panda Unavailable Encounter Details Date Type Department Care Team (Late st Contact Info) Description 04/12/2023 Abstract [facility] [address] [place] [id number] Sarai Quinn MD [address] [place], [place] [id number] Social History Tobacco Use Types Packs/Day Years [...] on filedocumented in this encounter Care Teams Motorcycle Sales Associate Relationship Specialty Start Date End Date Sarai Quinn MD [address], [place] [id number] PCP - General Family Medicine 06/14/22 04/08/24 Rochelle Maravilla CRNP [address] [facility] [place] [address] Referring Physician Nurse Practitioner 05/21/24 Bela Panda PA [address] [place] [address] Physician Blogs Manager Neurology 05/21/24 documented as of this encounter
--- OUTSIDE RECORDS SUMMARY | 2024-07-19 11:41 | XMS_ITS | Encounter Summary ---
Author Organization [facility] Address [address] [place] [address] Care Team Providers Care Highway Maintainer Name Role Phone Sarai Quinn MD Primary Care Provider Rochelle Maravilla Unavailable [phone] Bela Panda Unavailable Reason for Visit * Reason Onset Date Comments Med Refill 03/12/2024 Encounter Details Date Type Department Care Team (Late st Contact Info) Description 03/12/2024 Refill [facility] [address] [place] [address] Sarai Quinn MD [address] [place] [address] Social History Tobacco Use Types [...] on filedocumented in this encounter Care Teams Highway Maintainer Relationship Specialty Start Date End Date Sarai Quinn MD [address] [place] [address] PCP - General Family Medicine 06/14/22 04/08/24 Rochelle Maravilla CRNP [address] [facility] [place] [id number] Referring Physician Nurse Practitioner 05/21/24 Bela Panda PA [address] [place] [address] Physician Retail Link Analyst Neurology 05/21/24 documented as of this encounter
--- OUTSIDE RECORDS SUMMARY | 2024-07-19 11:41 | XMS_ITS | Clinical Summary ---
Author Organization [facility] Address [address] [place] [address] Care Team Providers Care Gas Station Supervisor Name Role Phone Sarai Quinn Primary Care Provider [phone] Allergies Active Allergy Reactions Criticality Noted Date Comments Lisinopril Myalgia High 12/30/2019 Pseudoephedrine Other: See Comments 12/30/2019 palpitations, patient reported Medications aspirin, enteric coated (ASPIRIN, ENTERIC COATED) 81 mg EC tablet Take 81 mg by mouth. Active cholecalciferol , vitamin D3, 10 mcg (400 unit) cap 0 Active TRELEGY ELLIPTA 100-62.5-25 mcg inhale 1 puff by mouth and INTO THE LUNGS once daily RINSE AFTER EACH USE 0 Active lansoprazole (PREVACID) 30 mg capsule take 1 capsule by mouth twice a day 30-60 MINUTES BEFORE BREAKFAST AND SUPPER as directed 0 Active magnesium oxide (MAG-OX) 400 mg (241.3 mg magnesium) tablet take 1 tablet by mouth once daily WITH A MEAL 0 Active OXcarbazepine (TRILEPTAL) 300 mg tablet TAKE 1 TABLET BY MOUTH EVERY MORNING AND 1 AND 1/2 TABS AT BEDTIME 0 Active tiZANidine (ZANAFLEX) 4 mg tablet Take 2 tablets by mouth. 5 Active eletriptan (RELPAX) 40 mg tablet take 1 tablet by mouth if needed AT ONSET OF HEADACHE may repeat ... (REFER TO PRESCRIPTION NOTES). 0 Active ipratropium bromide (ATROVENT) 42 mcg (0.06 %) nasal spray 0 Active ergocalciferol 50,000 unit capsule (VITAMIN D2, DRISDOL)Indicat ions:Vitamin D deficiency Take 1 capsule by mouth two times a week. (FOR EXAMPLE ONE CAPSULE ON MONDAY AND ONE ON MONDAY) FOR A TOTAL OF 4 WEEKS, WITH A MEAL 8 capsule 0 Active Social History Tobacco Use Types Packs/Day Years Used Date Smoking Tobacco: Never Assessed PHQ-2 Answer Date Recorded PHQ-2 score 2 04/16/2020 Area Deprivation Index Answer Date Zenon rded National Score (1-100), lower number is lower ri sk Not on file 01/11/2020 State Score (1-10), lower number is lower risk N ot on file 01/11/2020 Data from: https://www.neighborhoodatlas.medicine.[facility].edu/. Last address used for calculation Not on file 01/11/2020 Comments Unknown Sex and Gender Information Value Date Recorded Sex Assigned at Female 12/28/2019 6:51 PM EST Legal Sex Female 1:02 PM EST Gender Identity Female 12/28/2019 6:51 PM EST Sexual Orientation Straight 12/28/2019 6: 51 PM EST Plan of Treatment Health Maintenance Due Date Last Done Comments Anxiety Screening 01/25/1988 Depression Screening 01/25/1988 HIV Screening 01/25/1988 DTaP,Tdap,Td Vaccine (1 - Tdap) 1989 Hepatitis B Vaccine (1 of 3 - 19+ 3-dose series) 1989 Cervical Cancer Screening [address] Colonography 2015 Cologuard (FIT-DNA) 2015 Colonoscopy 2015 Colorectal Cancer Screening 2015 Diabetes Screening 2015 Fecal Occult Blood 2015 Lipid Screening 2015 Sigmoidoscopy 2015 Shingrix Vaccine (1 of 2) 01/25/2020 Pneumococcal Vaccine: 50+ (2 of 2 - PCV) 02/02/2021 02/03/2020 Covid-19 Vaccine (1 - 2023-2 5 season) 2023 Influenza Vaccine (Season Ended) 2024 10/31/2019, 11/28/2018, 11/06/2018, Additional history exists Hepatitis C Screening Completed 01/11/2020 Procedures Procedure Name Priority Date/Time Associated Diagnosis Comments *HEP C AB Routine 01/11/2020 10:13 AM EST Anti-HEALTH POLICY NURSE antibodies present SERAFIN positive Whole body pain from Last 3 Months or Most Recently Relevant to Health Maintenance Results * HEP REMOTE PANEL BL (01/11/2020 10:13 AM EST) Hep B Core Ab, Total Negative Negative 01/11/2020 7:49 PM EST [facility] Hep C Antibody IA Negative Negative 01/11/2020 7:50 PM EST [facility] HBsAg Negative Negative 01/11/2020 7:49 PM EST [facility] Hep B Surface Ab, Qual Negative Negative 01/11/2020 7:50 PM EST [facility] Comment:NEGATIVE Blood 01/11/2020 10:1 3 AM EST 01/11/2020 10:15 AM EST us Samantha Mane MD LABORATORY Final Resul t [facility] [address] [facility] [place] [address] [facility] [address] [place] [address] from Last 3 Months or Most Recently Relevant to Health Maintenance Insurance BLUE CARD PPO OOS Care Teams Gas Station Supervisor Relationship Specialty Start Date End Date Sarai Quinn [address] [place] [address] PCP - General Family Medicine 12/30/19
[2024-07-19 11:48] VITALS: BP 157/78; PULSE 86; TEMP 36.9; O2SAT 98; BMI 39.8
--- NOTE | 2024-07-19 12:05 | CT_ITS ---
The [address] [address] Patient Name: AUGUSTO ENRIQUEZ MRN: [id number] date: 1970 Sex: F Assigned Patient Location: ER Current Patient Location: ER Accession/Order Number: [id number] Exam Date: 07/19/2024 12:31 Report Date: 07/19/2024 12:33 At the request of: VITOR FRANZ MD Procedure: CT abdomen pelvis wo con CT ABDOMEN AND PELVIS WITHOUT INTRAVENOUS CONTRAST: CLINICAL HISTORY: flank pain and hematuria COMPARISON: CT abdomen and pelvis 11/12/2022 TECHNIQUE: Spiral images were obtained through the abdomen and pelvis without intravenous contrast. This CT exam was performed using one or more following dose reduction techniques: Automated exposure control, adjustment of the mA and/or kV according to patient size, or use of iterative reconstruction technique. FINDINGS: Lung Bases: [No acute findings.] Organs:Suboptimal evaluation due to lack of IV contrast. Portions of the dome of the liver is excluded from today's study. Gallbladder has been removed. Visualized liver pancreas spleen and adrenal glands all appear unremarkable. Aorta appears normal in caliber. Bilateral nephrolithiasis largest stone measuring 8 mm involving the right renal pelvis. No ureteral calculus. Aorta appears normal in caliber. GI: Stomach is grossly unremarkable. Small bowel appears nondilated. Appendix is normal. Acute colonic abnormality.[ Pelvis:[Suboptimal evaluation due to streak hardware artifact from the patient's bilateral hip prostheses. No acute gross abnormality.] Peritoneum/Retroperitoneum:No free air or free fluid or lymphadenopathy.[ Abd wall/Bones:Abdominal wall demonstrates no acute findings. Osseous structures demonstrate degenerative change.[ CT/CT abdomen pelvis wo con IMPRESSION: No acute intra-abdominal process. Bilateral nephrolithiasis. Impression dictated by: Edmond Soto Jr., D.O. 07/19/2024 12:33 PM Dictation Location: [facility] Electronically authenticated by: [id number] Y Date: 07/19/2024 12:33
[2024-07-19 12:37] VITALS: BP 130/75; PULSE 67; O2SAT 99
[2024-07-19] MEDS: KETOROLAC TROMETHAMINE 30 MG/ML VIAL 15 MG IVP (12:37)
[2024-07-19 12:38] LABS: Bilirubin Urine NEGATIVE (NEGATIVE); Blood Urine LARGE (NEGATIVE); Clarity Urine CLEAR (CLEAR); Color Urine YELLOW (YELLOW); Glucose Urine UA NEGATIVE (NEGATIVE); Ketones Urine NEGATIVE (NEGATIVE); Leukocyte Esterase Urine NEGATIVE (NEGATIVE); Nitrite Urine NEGATIVE (NEGATIVE); Protein Urine NEGATIVE (NEG/TRACE); Urine Microscopic Indicated YES; Urobilinogen Urine 0.2 EU/dL (0.2-1.0)
[2024-07-19 12:38] LABS: Basophils Percent Auto 0.5 % (0.2-2.0); Eosinophils Absolute Auto 0.2 10^3/uL (0.0-0.7); Eosinophils Percent Auto 2.4 % (0.9-7.0); Hematocrit 40.3 % (36.0-48.0); Hemoglobin 13.2 g/dL (12.0-16.0); Immature Granulocytes Abs Auto 0.03 10^3/uL (0.00-0.03); Immature Granulocytes Pct Auto 0.3 % (0.0-0.5); Lymphocytes Absolute Auto 2.4 10^3/uL (1.2-3.8); Lymphocytes Percent Auto 27.4 % (20.5-60.0); Mean Corpuscular HGB Conc 32.8 g/dL (29.9-35.2); Mean Corpuscular Hemoglobin 29.4 pg (26.7-34.0); Mean Corpuscular Volume 89.8 fL (81.0-99.0); Mean Platelet Volume 10.2 fL (9.5-13.5); Monocytes Absolute Auto 0.7 10^3/uL (0.3-0.8); Monocytes Percent Auto 8.1 % (1.7-12.0); Neutrophils Absolute Auto 5.4 10^3/uL (1.4-6.5); Neutrophils Percent Auto 61.3 % (43.0-75.0); Platelet Count 224 10^3/uL (150-450); Red Blood Count 4.49 10^6/uL (4.20-5.40); Red Cell Distribution Width 14.2 % (11.0-15.0); White Blood Count 8.8 10^3/uL (4.0-11.0)
[2024-07-19 12:48] LABS: Bacteria Urine TRACE #/HPF (NONE SEEN); Cast Seen? NONE SEEN #/LPF (NONE SEEN); Crystals Seen? None Seen #/HPF (None Seen); Mucus Urine TRACE (NONE SEEN); RBC Urine 20-50 #/HPF (0-2); Squamous Epithelial Cell Urine FEW #/LPF (NONE/RARE); Urine Culture Indicated NO; WBC Urine 0-2 #/HPF (NONE SEEN)
[2024-07-19 13:03] LABS: Alanine Aminotransferase 25 U/L (14-59); Albumin Globulin Ratio 1.1; Albumin Level 4.1 g/dL (3.4-5.0); Alkaline Phosphatase 115 U/L (46-116); Aspartate Amino Transferase 19 U/L (15-37); BUN Creatinine Ratio 22.2; Bilirubin Total 0.3 mg/dL (0.2-1.0); Calcium 9.3 mg/dL (8.5-10.1); Carbon Dioxide 29.4 mmol/L (21.0-32.0); Chloride 103 mmol/L (98-107); Estimated GFR (African America >60 (>=60 mL/min/1.73m^2); Estimated GFR (Non-African Ame >60 (>=60 mL/min/1.73m^2); Globulin 3.9 g/dL; Glucose 81 mg/dL (74-106); Potassium 3.4 mmol/L (3.5-5.1); Sodium 143 mmol/L (136-145)
--- NOTE | 2024-07-19 13:32 | ED.BACK1 ---
HPI HPI - Back Pain/Injury General Chief Complaint: Back Pain/Injury Stated Complaint: PAIN IN KIDNEYS, NAUSEA, BLOOD WHEN URINATING Time Seen by Provider: 07/19/24 12:05 Mode of arrival: walk-in History of Present Illness HPI Narrative: The patient is a 54-year-old female with history of kidney stone, coming to the ER with a right-sided flank pain that started almost within the last week although the patient mentioned that the pain has been intermittent, associated sometimes with hematuria The patient denies any fever chills The patient pain was intermittent and mostly intensified over the last 24 hours There was no fever chills or any other concerns Related Data Home Medications ?Medication ?Instructions ?Recorded ?Confirmed aspirin 81 mg chewable tablet 81 mg PO QAM 07/19/24 07/19/24 bupropion HCl 300 mg 24 hr tablet, 300 mg PO QAM 07/19/24 07/19/24 extended release cyclobenzaprine 10 mg tablet 10 mg PO .qhs 07/19/24 07/19/24 cyclosporine 0.05 % eye drops in a 1 drp ophthalmic (eye) Q12H 07/19/24 07/19/24 dropperette (Restasis) eletriptan 40 mg tablet 40 mg PO Q2H PRN migraine headache 07/19/24 07/19/24 fluoxetine 20 mg capsule 20 mg PO QAM 07/19/24 07/19/24 fremanezumab-vfrm 225 mg/1.5 mL 225 mg subcut 07/19/24 subcutaneous syringe (Ajovy Syringe) hydrochlorothiazide 12.5 mg capsule 12.5 mg PO QAM 07/19/24 07/19/24 rosuvastatin 10 mg tablet 10 mg PO QAM 07/19/24 07/19/24 semaglutide 0.25 mg or 0.5 mg (2 0.5 mg subcut .q week 07/19/24 07/19/24 mg/3 mL) subcutaneous pen injector (Ozempic) tizanidine 4 mg tablet 4 mg PO .qhs 07/19/24 07/19/24 Previous Rx's ?Medication ?Instructions ?Recorded cephalexin 500 mg capsule 500 mg PO Q12H 7 days #14 caps 07/19/24 diclofenac sodium 75 mg 75 mg PO BID PRN pain #20 tabs 07/19/24 tablet,delayed release tamsulosin 0.4 mg capsule (Flomax) 0.4 mg PO DAILY #10 caps 07/19/24 Allergies Allergy/AdvReac Type Severity Reaction Status Date / Time phenazopyridine (From AdvReac Mild Vomiting Verified 07/19/24 11:43 Pyridium) Opioid HPI Opioid Management Most Recent Opioid Data: Last Pain Scale 6 Today, 12:37 Last MAR Pain Assessment Today, 12:37 Review of Systems ROS Status of ROS 10 or more systems reviewed and unremarkable except as noted in history and below PFSH PFSH Social History Little interest or pleasure in doing things: not at all Feeling down, depressed, or hopeless: not at all Exam Narrative Exam Narrative: Nurses notes and vital signs reviewed and patient is not hypoxic. General: Well-appearing and in no apparent distress. Skin: Warm, dry, no pallor noted. No rash. Head: Normocephalic, atraumatic. Neck: Supple, non-tender. Cardiovascular: Regular Rate and Rhythm without murmur, gallop or rub. Respiratory: No accessory muscle use or respiratory distress. Lungs are clear to auscultation, no wheezing, rales or rhonchi Chest Wall: no tenderness Back: No midline thoracic or lumbar vertebral tenderness. Right CVA tenderness Musculoskeletal: normal ROM, no calf or popliteal tenderness, no lower extremity edema/swelling GI: Abdomen is soft, non-distended. Normal bowel sounds. No masses appreciated. No tenderness to palpation. No rebound, guarding, or rigidity noted. Neurological: A&O x4. No cranial nerve dysfunction observed. No truncal ataxia. Moves all extremities. Sensation intact. Psychiatric: Cooperative and interactive. Normal mood and affect. Constitutional Vital Signs, click to edit/add: Last Vital Signs Temp 98.4 F 07/19/24 11:48 Pulse 84 07/19/24 13:42 Resp 18 07/19/24 13:42 BP 131/80 07/19/24 13:42 Pulse Ox 100 07/19/24 13:42 O2 Del Method Room Air 07/19/24 13:42 Course Vital Signs Vital signs: Vital Signs Temperature 98.4 F 07/19/24 11:48 Pulse Rate 86 07/19/24 11:48 Respiratory Rate 16 07/19/24 11:48 Blood Pressure 157/78 H 07/19/24 11:48 Pulse Oximetry 98 07/19/24 11:48 Oxygen Delivery Method Room Air 07/19/24 11:48 Temperature 98.4 F 07/19/24 11:48 Pulse Rate 84 07/19/24 13:42 Respiratory Rate 18 07/19/24 13:42 Blood Pressure 131/80 07/19/24 13:42 Pulse Oximetry 100 07/19/24 13:42 Oxygen Delivery Method Room Air 07/19/24 13:42 MDM - Back Pain/Injury MDM Narrative Medical decision making narrative: The patient CBC and chemistry showed no acute pathology Urinalysis showed that the patient have some bacteriuria The patient was provided with Toradol for pain control after which she was feeling much better CAT scan showed that the patient had bilateral kidney stones with no hydronephrosis and there is 8 mm kidney stone that is the biggest on the right side of the pelvis The patient was provided with Keflex to cover for UTI prophylaxis The patient was discharged home with Flomax and strainer to strain her urine in addition to Voltaren for the pain Patient instructed about coming to the ED in case of any fevers or increasing pain The patient is to follow up with primary care physician in next 2-3 days or to return to the emergency department should any of the signs or symptoms worsen or new symptoms develop. The patient agrees with the following Diagnosis and Treatment plan and the patient will be discharged home. Lab Data Labs: Lab Results 07/19/24 07/19/24 Range/Units 12:12 12:22 WBC 8.8 (4.0-11.0) 10^3/uL RBC 4.49 (4.20-5.40) 10^6/uL Hgb 13.2 (12.0-16.0) g/dL Hct 40.3 (36.0-48.0) % MCV 89.8 (81.0-99.0) fL MCH 29.4 (26.7-34.0) pg MCHC 32.8 (29.9-35.2) g/dL RDW 14.2 (11.0-15.0) % Plt Count 224 (150-450) 10^3/uL MPV 10.2 (9.5-13.5) fL Neut % (Auto) 61.3 (43.0-75.0) % Lymph % (Auto) 27.4 (20.5-60.0) % [place] % (Auto) 8.1 (1.7-12.0) % Eos % (Auto) 2.4 (0.9-7.0) % Baso % (Auto) 0.5 (0.2-2.0) % Neut # (Auto) 5.4 (1.4-6.5) 10^3/uL Lymph # (Auto) 2.4 (1.2-3.8) 10^3/uL [place] # (Auto) 0.7 (0.3-0.8) 10^3/uL Eos # (Auto) 0.2 (0.0-0.7) 10^3/uL Baso # (Auto) 0.0 (0.0-0.1) 10^3/uL Abs Immat Gran (auto) 0.03 (0.00-0.03) 10^3/uL Imm/Tot Granulo (auto) 0.3 (0.0-0.5) % Sodium 143 (136-145) mmol/L Potassium 3.4 L (3.5-5.1) mmol/L Chloride 103 (98-107) mmol/L Carbon Dioxide 29.4 (21.0-32.0) mmol/L Anion Gap 14.0 BUN 18.0 (7.0-18.0) mg/dL Creatinine 0.81 (0.55-1.02) mg/dL Est GFR ( Amer) >60 (>=60 mL/min/1.73m^2) Est GFR (Non-Af Amer) >60 (>=60 mL/min/1.73m^2) BUN/Creatinine Ratio 22.2 Glucose 81 (74-106) mg/dL Calcium 9.3 (8.5-10.1) mg/dL Total Bilirubin 0.3 (0.2-1.0) mg/dL AST 19 (15-37) U/L ALT 25 (14-59) U/L Alkaline Phosphatase 115 (46-116) U/L Total Protein 8.0 (6.4-8.2) g/dL Albumin 4.1 (3.4-5.0) g/dL Globulin 3.9 g/dL Albumin/Globulin Ratio 1.1 Urine Color Yellow (YELLOW) Urine Clarity Clear (CLEAR) Urine pH 7.0 (5.0-9.0) Ur Specific [place] 1.020 (1.005-1.025) Urine Protein Negative (NEG/TRACE) mg/dL Urine Glucose (UA) Negative (NEGATIVE) mg/dL Urine Ketones Negative (NEGATIVE) mg/dL Urine Occult Blood Large A (NEGATIVE) Urine Nitrite Negative (NEGATIVE) Urine Bilirubin Negative (NEGATIVE) Urine Urobilinogen 0.2 (0.2-1.0) EU/dL Ur Leukocyte Esterase Negative (NEGATIVE) Urine RBC 20-50 A (0-2) #/HPF Urine WBC 0-2 A (NONE SEEN) #/HPF Ur Squamous Epith Cells Few A (NONE/RARE) #/LPF Urine Crystals None seen (None Seen) #/HPF Urine Bacteria Trace A (NONE SEEN) #/HPF Urine Casts None seen (NONE SEEN) #/LPF Urine Mucus Trace A (NONE SEEN) Ur Culture Indicated? No Discharge Plan Discharge Chief Complaint: Back Pain/Injury Clinical Impression: Bilateral kidney stones Patient Disposition: Home, Self-Care Time of Disposition Decision: 13:33 Condition: Good Prescriptions / Home Meds: New tamsulosin [Flomax] 0.4 mg capsule 0.4 mg PO DAILY Qty: 10 0RF cephalexin 500 mg capsule 500 mg PO Q12H 7 Days Qty: 14 0RF diclofenac sodium 75 mg tablet,delayed release (DR/EC) 75 mg PO BID PRN (Reason: pain) Qty: 20 0RF No Action aspirin 81 mg tablet,chewable 81 mg PO QAM bupropion HCl 300 mg tablet extended release 24 hr 300 mg PO QAM cyclobenzaprine 10 mg tablet 10 mg PO .qhs cyclosporine [Restasis] 0.05 % dropperette 1 drp OPHTHALMIC (EYE) Q12H Rx Instructions: both eyes eletriptan 40 mg tablet 40 mg PO Q2H PRN (Reason: migraine headache) fluoxetine 20 mg capsule 20 mg PO QAM Ajovy Syringe 225 mg/1.5 mL syringe 225 mg SUBCUT hydrochlorothiazide 12.5 mg capsule 12.5 mg PO QAM rosuvastatin 10 mg tablet 10 mg PO QAM Ozempic 0.25 mg or 0.5 mg (2 mg/3 mL) pen injector 0.5 mg SUBCUT .q week Rx Instructions: Sundays tizanidine 4 mg tablet 4 mg PO .qhs Print Language: Mexican Instructions: Kidney Stones (ED), How to Strain Your Urine (ED) Referrals: TY DOOLEY [Primary Care Provider, Unknown] - 1 week Discharge Date/Time: 07/19/24 13:43
[2024-07-19 13:42] VITALS: BP 131/80; PULSE 84; O2SAT 100
== END 2024-07-19 13:43 | disposition home or self-care (01) ==
PROVIDERS: Emergency Provider Emergency Medicine; PCP Nurse Practitioner
DX: N20.0 Calculus of kidney (principal); R10.31 Right lower quadrant pain; R31.9 Hematuria, unspecified
CPT/HCPCS: 36415; 74176; 80053; 81001; 85025; 96374; 99285; J1885